=== PATIENT | female | born 1945 | race Caucasian/White ===

== ENCOUNTER → 2019-07-15 | Outpatient (CLI) | payer OTHER ==
[~2019-07-15] MED LIST: ALLEGRA ALLERG180 MG PO; BYSTOLIC 5 MG5 M1 PO; CALCIUM 600 MG1 EAC2 PO; COQ-10100 MG PO; CYMBALTA60 MG PO; EPIDIOLEX100 MG/1 M PO; FISH OIL 1,2001 EAC6 PO; FLECAINIDE ACE150 MG PO; HYDROCHLOROTHIA25 M2 PO; IRBESARTAN300 MG PO; LIPITOR 20 MG T20 M1 PO; MELATONIN10 M3 PO; METFORMIN HCL500 MG PO; MULTIVITAMINS1 EAC6 PO; NORVASC5 MG PO; PROAIR HFA8.5 GM INH; PROTONIX40 M1 PO; SINGULAIR 10 MG10 M1 PO; SYMBICORT160 MCG/4. INH; TYLENOL EXTRA500 MG PO; XARELTO20 MG PO; ZANAFLEX4 MG PO
== END ==
LOC: SJCVCIMAG 08:01
DX: I44.0 Atrioventricular block, first degree (principal); I65.23 Occlusion and stenosis of bilateral carotid arteries; I48.0 Paroxysmal atrial fibrillation; E78.00 Pure hypercholesterolemia, unspecified; G47.30 Sleep apnea, unspecified; I35.8 Other nonrheumatic aortic valve disorders; I10 Essential (primary) hypertension; E11.9 Type 2 diabetes mellitus without complications

== ENCOUNTER → 2019-11-26 | Outpatient (CLI) | payer OTHER | LOC: SJCVC 08:55 → SJCVCIMAG 12:13 | PROVIDERS: ATTEND Internal Medicine Cardiovascular Disease | DX: I44.0 Atrioventricular block, first degree (principal); I49.3 Ventricular premature depolarization; I48.0 Paroxysmal atrial fibrillation; I10 Essential (primary) hypertension; E78.5 Hyperlipidemia, unspecified; E11.9 Type 2 diabetes mellitus without complications; Z79.899 Other long term (current) drug therapy; Z82.49 Family history of ischemic heart disease and other diseases of the circulatory system ==

== ENCOUNTER → 2020-02-11 | Outpatient (CLI) | payer OTHER | LOC: SJCVC 09:09 | PROVIDERS: ATTEND Internal Medicine Cardiovascular Disease | DX: R94.31 Abnormal electrocardiogram [ECG] [EKG] (principal); I45.10 Unspecified right bundle-branch block; I48.0 Paroxysmal atrial fibrillation; I10 Essential (primary) hypertension; E78.00 Pure hypercholesterolemia, unspecified; G47.30 Sleep apnea, unspecified; E66.01 Morbid (severe) obesity due to excess calories; D68.59 Other primary thrombophilia; E11.9 Type 2 diabetes mellitus without complications; I35.8 Other nonrheumatic aortic valve disorders; Z68.41 Body mass index [BMI] 40.0-44.9, adult; Z79.899 Other long term (current) drug therapy ==